=== PATIENT | male | born 1990 | race Caucasian/White ===

== ENCOUNTER 2017-05-23 08:56 | Emergency (ER) | payer BC ==
[2017-05-23 09:11] VITALS: BP 143/78
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
== END 2017-05-23 10:18 | disposition home or self-care (01) ==
LOC: DL.ED 08:56
DX: S93.401A Sprain of unspecified ligament of right ankle, initial encounter (principal); S90.01XA Contusion of right ankle, initial encounter; F17.210 Nicotine dependence, cigarettes, uncomplicated; Z88.5 Allergy status to narcotic agent; W22.8XXA Striking against or struck by other objects, initial encounter
CPT/HCPCS: 73610-RT; 99283

== ENCOUNTER 2019-07-12 20:48 | Emergency (ER) | payer BC, OTHER ==
[2019-07-12] MEDS ORDERED: Iopamidol 612 MG/ML 100 ML Bottle IVPUSH ONE (21:12)
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
[2019-07-12 21:33] LABS: ANION GAP 15.9 mEq/L (7-13); CHLORIDE,CL 104 mmol/L (98-107); SODIUM,NA 143 mmol/L (136-145)
[2019-07-12] MEDS ORDERED: Lidocaine 1% 30 ML SDV INJECT ONE (22:15)
[2019-07-12] MEDS ORDERED: Lactated Ringers 1,000 ML IV SCH (22:30)
[2019-07-12] MEDS ORDERED: traMADol 50 MG Tab PO ONE (23:16)
== END 2019-07-12 23:25 | disposition home or self-care (01) ==
LOC: DL.ED 20:48
DX: S02.32XB Fracture of orbital floor, left side, initial encounter for open fracture (principal); S51.811A Laceration without foreign body of right forearm, initial encounter; Z88.5 Allergy status to narcotic agent; V89.2XXA Person injured in unspecified motor-vehicle accident, traffic, initial encounter
CPT/HCPCS: 12002; 36415; 70450; 70486; 71260; 72125; 73090; 74177; 80053; 80307; 82150; 83690; 84484; 85025; 99285; A9270; J2001; J7120; Q9967